=== PATIENT | female | born 1960 | race Caucasian/White ===

== ENCOUNTER 2018-04-21 11:26 | Emergency (ER) | payer MEDICARE ==
[~2018-04-21] VITALS: Ht 170.2 cm; Wt 61.4 kg
--- NOTE | 2018-04-21 12:43 | REP ---
MAXILLOFACIAL CT WITHOUT CONTRAST: HISTORY: Fall. Minimal mucosal thickening is present in the maxillary and left sphenoid sinuses. The remaining sinuses are clear. Mucosal thickening involves the left ostiomeatal unit. The right ostiomeatal unit is patent. The middle and inferior nasal turbinates are partially paradoxical. There is mild deviation of the nasal septum to the left. A spur is present arising from the left side of the nasal septum. The spur abuts the left inferior nasal turbinate. The cribriform plate, medial hernandez of the orbits and optic canals are intact. The carotid canals form a segment of the posterolateral hernandez of the sphenoid sinus. There is a fracture of the nasal bone. Soft tissue swelling is present. IMPRESSION: 1. Sinus mucosal thickening as described above. 2. Nasal bone fracture. Electronically Signed by Tramaine Soto MD 04/21/2018 12:44 P
--- NOTE | 2018-04-21 12:45 | REP ---
RIGHT KNEE, FIVE VIEWS: HISTORY: Fall. There is no acute fracture or dislocation. There is mild narrowing of the medial joint space and minimal narrowing of the lateral knee joint space. The patellofemoral joint space is normal in appearance. An osteophyte is present on the superior aspect of the patella. IMPRESSION: There is no acute fracture or dislocation. Electronically Signed by Tramaine Soto MD 04/21/2018 12:47 P
[2018-04-21] MEDS ORDERED: PERC5TAB12 PO (13:29)
[2018-04-21] MEDS ORDERED: PERCOCET 5MG/325MG TAB PO ONE (13:30)
[2018-04-21] MEDS ORDERED: DERMABOND TOPICAL SKIN ADHESIVE TOP ONE (13:30)
[2018-04-21 13:33] VITALS: BP 178/91
== END 2018-04-21 13:47 | disposition home or self-care (01) ==
LOC: M ED 11:26
DX: S02.2XXB Fracture of nasal bones, initial encounter for open fracture (principal); J34.89 Other specified disorders of nose and nasal sinuses; M25.461 Effusion, right knee; W19.XXXA Unspecified fall, initial encounter; Y92.129 Unspecified place in nursing home as the place of occurrence of the external cause; I10 Essential (primary) hypertension

== ENCOUNTER → 2018-10-11 | Outpatient (CLI) | payer MEDICARE ==
[~2018-10-11] MED LIST: PERC5TAB12 PO
--- NOTE | 2018-10-11 09:39 | REP ---
Right foot series: Four views. History: Right foot sprain. Findings: Four views of the right foot demonstrate plantar and Achilles calcaneal spurring. 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 There is old post-traumatic deformity or non-united chip fracture involving the distal end of the proximal phalanx of the fifth toe at its PIP joint. No acute fracture is appreciated. Impression: No acute fracture seen. Degenerative changes. Electronically Signed by Carlin bAreu MD 10/11/2018 09:31 A
--- NOTE | 2018-10-11 09:40 | REP ---
Right ankle series: Four views. History: Right ankle sprain. Findings: Ankle mortise is intact. There is minimal spurring of the medial malleolus. Achilles and plantar calcaneal spurring are noted. Impression: No fracture seen. Heel spurs. Electronically Signed by Carlin Abreu MD 10/11/2018 09:31 A
== END ==
LOC: M WUC 09:00
PROVIDERS: ATTEND Physician Assistant
DX: M77.31 Calcaneal spur, right foot (principal)